=== PATIENT | female | born 1970 ===

== ENCOUNTER 2022-10-07 05:56 | Day surgery (SDC) | payer OTHER ==
[~2022-10-07] VITALS: Ht 170.2 cm; Wt 119.3 kg
[2022-10-07] MEDS ORDERED: IBU600 MG PO (09:33)
== END 2022-10-07 11:45 | disposition home or self-care (01) ==
LOC: CIR.AMB 05:56
PROVIDERS: ATTEND Obstetrics & Gynecology Gynecology
DX: N84.0 Polyp of corpus uteri (principal); N72 Inflammatory disease of cervix uteri; N87.9 Dysplasia of cervix uteri, unspecified; Z20.822 Contact with and (suspected) exposure to COVID-19